=== PATIENT | female | born 1990 | race Caucasian/White ===

== ENCOUNTER 2017-06-15 22:35 | Inpatient (IN) | payer OTHER ==
[2017-06-15 23:26] LABS: HEMATOCRIT 36.4 % (36.0-47.0); HEMOGLOBIN 12.7 g/dl (12.0-16.0); MEAN CORPUSCULAR HEMOGLOBIN 32.5 pg (27.0-33.0); MEAN CORPUSCULAR HGB CONC 34.9 g/dl (32.0-36.5); MEAN CORPUSCULAR VOLUME 93.1 fl (80.0-96.0); PLATELET COUNT, AUTOMATED 243 10^3/uL (150-450); RED BLOOD COUNT 3.91 10^6/uL (4.00-5.40); RED CELL DISTRIBUTION WIDTH 11.9 % (11.5-14.5); WHITE BLOOD COUNT 8.6 10^3/uL (4.0-10.0)
[2017-06-15 23:45] LABS: CONTROL LINE HCG INT CTR LINE PRESENT; HCG, SERUM QUALITATIVE NEGATIVE (NEGATIVE)
[2017-06-15 23:51] LABS: AMPHETAMINES LEVEL URINE NEGATIVE (NEGATIVE); BARBITURATES URINE NEGATIVE (NEGATIVE); BENZODIAZEPINES URINE NEGATIVE (NEGATIVE); CANNABINOIDS URINE NEGATIVE (NEGATIVE); COCAINE METABOLITE URINE NEGATIVE (NEGATIVE); METHADONE URINE NEGATIVE (NEGATIVE); OPIATES URINE NEGATIVE (NEGATIVE); PHENCYCLIDINE URINE NEGATIVE (NEGATIVE)
[2017-06-16] LABS: ALBUMIN 3.5 GM/DL (3.2-5.2); ALKALINE PHOSPHATASE 73 U/L (45-117); ALT/SGPT 36 U/L (12-78); ANION GAP 7 MEQ/L (8-16); AST/SGOT 19 U/L (7-37); BILIRUBIN,DIRECT < 0.1 MG/DL (0.0-0.2); BILIRUBIN,TOTAL 0.2 MG/DL (0.2-1.0); BLOOD UREA NITROGEN 10 MG/DL (7-18); CALCIUM LEVEL 8.4 MG/DL (8.5-10.1); CARBON DIOXIDE LEVEL 29 MEQ/L (21-32); CHLORIDE LEVEL 107 MEQ/L (98-107); CREATININE FOR GFR 0.73 MG/DL (0.55-1.30); ETHYL ALCOHOL (ETHANOL) 0.059 % (0.000-0.010); GLOMERULAR FILTRATION RATE > 60.0 (>60); GLUCOSE, FASTING 92 MG/DL (70-100); POTASSIUM SERUM 3.7 MEQ/L (3.5-5.1); SALICYLATE LEVEL 2.5 MG/DL (5.0-30.0); SODIUM LEVEL 143 MEQ/L (136-145)
[2017-06-16 00:02] LABS: ACETAMINOPHEN LEVEL < 2.0 UG/ML (10.0-30.0)
[2017-06-16] MEDS: ONDANSETRON 4 MG ORAL DISINTEGRATING TAB (S0181) PO (00:31)
[2017-06-16] MEDS ORDERED: MOM 30ML SUSPENSION UDC PO (02:15)
[2017-06-16] MEDS ORDERED: MAALOX 30 ML SUSP *UDC PO (02:15)
[2017-06-16] MEDS ORDERED: traZODone 50 MG TAB PO (02:15)
[2017-06-16] MEDS: CitaloPRAM (CeleXA) 20 MG TAB PO (11:59)
[2017-06-16] MEDS: PALIPERIDONE 3 MG ER TAB (INVEGA) PO (12:00)
[2017-06-16] MEDS: hydrOXYzine 50 MG TAB PO ×3 (12:00→18:31)
[2017-06-16 12:30] LABS: HEPATITIS B SURFACE ANTIGEN NEGATIVE (NEGATIVE)
[2017-06-16 12:57] LABS: HEPATITIS B CORE ANTIBODY IGM NEGATIVE (NEGATIVE)
[2017-06-16 12:58] LABS: HIV 1&2 SCREEN CENTAUR NEGATIVE (NEGATIVE)
[2017-06-16 12:59] LABS: HEPATITIS A ANTIBODY IGM NEGATIVE (NEGATIVE)
[2017-06-16 13:04] LABS: HEPATITIS C VIRUS ABY INDEX > 11.0 INDEX (<0.8)
[2017-06-16] MEDS: ACETAMINOPHEN TAB 650MG DOSE (2X325MG) PO (18:32)
[2017-06-16] MEDS: traZODone 50 MG TAB PO (21:15)
[2017-06-17] MEDS: CitaloPRAM (CeleXA) 20 MG TAB PO (08:17)
[2017-06-17] MEDS: PALIPERIDONE 3 MG ER TAB (INVEGA) PO (08:17)
[2017-06-17] MEDS: NALTREXONE 50 MG TAB PO (08:17)
[2017-06-17] MEDS: INFLUENZA QUADRIVALENT PF VACCINE 0.5ML SYRINGE (90686) IM (08:19)
[2017-06-17 12:18] LABS: CHLAMYDIA DNA AMPLIFICATION NEGATIVE (NEGATIVE); GC DNA AMPLIFICATION NEGATIVE (NEGATIVE)
[2017-06-17] MEDS: ACETAMINOPHEN TAB 650MG DOSE (2X325MG) PO ×2 (12:22→20:55)
[2017-06-17] MEDS: hydrOXYzine 50 MG TAB PO ×2 (17:13→21:20)
[2017-06-17] MEDS: traZODone 50 MG TAB PO (20:56)
[2017-06-18] MEDS: NALTREXONE 50 MG TAB PO (08:15)
[2017-06-18] MEDS: PALIPERIDONE 3 MG ER TAB (INVEGA) PO ×2 (08:15→20:39)
[2017-06-18] MEDS: CitaloPRAM (CeleXA) 20 MG TAB PO (08:15)
[2017-06-18] MEDS: traZODone 100 MG TAB PO (20:39)
[2017-06-18] MEDS: ACETAMINOPHEN TAB 650MG DOSE (2X325MG) PO (21:12)
[2017-06-18] MEDS: hydrOXYzine 50 MG TAB PO (21:13)
[2017-06-19] MEDS: NALTREXONE 50 MG TAB PO (08:03)
[2017-06-19] MEDS: PALIPERIDONE 6 MG ER TAB (INVEGA) PO (08:03)
[2017-06-19] MEDS: CitaloPRAM (CeleXA) 20 MG TAB PO (08:03)
[2017-06-19] MEDS: hydrOXYzine 50 MG TAB PO (14:29)
[2017-06-19] MEDS: BUPRENORPHINE/NALOXONE 8-2MG SUBLINGUAL TABLET(SUBOXONE) SL (19:21)
[2017-06-19] MEDS: BUPRENORPHINE/NALOXONE 2-0.5MG SUBLINGUAL TABLET(SUBOXONE) SL (19:22)
[2017-06-19] MEDS: PALIPERIDONE 3 MG ER TAB (INVEGA) PO (20:43)
[2017-06-19] MEDS: traZODone 100 MG TAB PO (20:44)
[2017-06-20 00:06] LABS: HCV RNA NAA QUALITATIVE Negative (Negative)
[2017-06-20] MEDS: CitaloPRAM (CeleXA) 20 MG TAB PO (08:15)
[2017-06-20] MEDS: BUPRENORPHINE/NALOXONE 8-2MG SUBLINGUAL TABLET(SUBOXONE) SL (08:15)
[2017-06-20] MEDS: PALIPERIDONE 6 MG ER TAB (INVEGA) PO (08:15)
[2017-06-20] MEDS: BUPRENORPHINE/NALOXONE 2-0.5MG SUBLINGUAL TABLET(SUBOXONE) SL (08:15)
[2017-06-20] MEDS ORDERED: BUPRENORPHINE/NALOXONE 8-2MG SUBLINGUAL TABLET(SUBOXONE) SL (09:00)
[2017-06-20] MEDS ORDERED: BUPRENORPHINE/NALOXONE 2-0.5MG SUBLINGUAL TABLET(SUBOXONE) SL (09:00)
== END 2017-06-20 09:30 | disposition home or self-care (01) | DRG 750 ==
LOC: M ED 22:35 → M ED INP 06-16 02:07 → M PSY 06-16 03:53
PROVIDERS: Psychiatry & Neurology Psychiatry
DX: F25.9 Schizoaffective disorder, unspecified (principal); F43.10 Post-traumatic stress disorder, unspecified; F17.210 Nicotine dependence, cigarettes, uncomplicated; F10.239 Alcohol dependence with withdrawal, unspecified; F14.20 Cocaine dependence, uncomplicated; F11.20 Opioid dependence, uncomplicated; F15.20 Other stimulant dependence, uncomplicated; Z62.810 Personal history of physical and sexual abuse in childhood; Z91.5 Personal history of self-harm; Z81.8 Family history of other mental and behavioral disorders; Z79.899 Other long term (current) drug therapy

== ENCOUNTER 2023-11-27 17:37 | Inpatient (IN) | payer OTHER ==
[~2023-11-27] VITALS: Ht 160 cm; Wt 110.0 kg
[~2023-11-27 17:37] MED LIST: CITA20TA6 PO; CLON-412 PO; FOLI1TAB11 PO; FOLI5INJ2 PO; GABA-282 PO; GABA-284 PO; HYDR-643 PO; LITH300T PO; PALI1TAB2 PO; PALI1TAB3 PO; RISP-106 PO; TRAZ-252 PO; TRAZ1TAB12 PO; VITA100T60 PO
[2023-11-27] MEDS: DERMABOND TOPICAL SKIN ADHESIVE TOP ONE (17:50)
[2023-11-27 18:23] LABS: HEMATOCRIT 39.2 % (36.0-47.0); HEMOGLOBIN 13.2 g/dl (12.0-15.5); MEAN CORPUSCULAR HGB CONC 33.7 g/dl (32.0-36.5); MEAN CORPUSCULAR VOLUME 95.1 fl (80.0-96.0); PLATELET COUNT, AUTOMATED 306 10^3/uL (150-450); RED BLOOD COUNT 4.12 10^6/uL (4.00-5.40); WHITE BLOOD COUNT 9.8 10^3/uL (4.0-10.0)
[2023-11-27 18:47] LABS: HCG, SERUM QUALITATIVE NEGATIVE (NEGATIVE)
[2023-11-27 18:48] LABS: ETHYL ALCOHOL (ETHANOL) < 0.003 % (0.000-0.010)
[2023-11-27 18:50] LABS: ALBUMIN 3.4 G/DL (3.2-5.2); ALKALINE PHOSPHATASE 69 U/L (46-116); ALT/SGPT 27 U/L (7.0-40); AST/SGOT 22 U/L (<34); BILIRUBIN,DIRECT < 0.1 MG/DL (<0.4); BILIRUBIN,TOTAL 0.2 MG/DL (0.3-1.2); BLOOD UREA NITROGEN 8 MG/DL (9-23); CALCIUM LEVEL 8.5 MG/DL (8.5-10.1); CARBON DIOXIDE LEVEL 28 MMOL/L (20-31); CHLORIDE LEVEL 106 MMOL/L (98-107); CREATININE FOR GFR 0.64 MG/DL (0.55-1.30); GLOMERULAR FILTRATION RATE > 60.0 (>60); GLUCOSE, FASTING 87 MG/DL (60-100); POTASSIUM SERUM 4.5 MMOL/L (3.5-5.1); SALICYLATE LEVEL < 3.0 MG/DL (<30); SODIUM LEVEL 139 MMOL/L (136-145); TOTAL PROTEIN 6.7 G/DL (5.7-8.2)
[2023-11-27] MEDS ORDERED: BENZ0.5T2 PO (21:28)
[2023-11-27] MEDS ORDERED: SERO1TAB PO (21:28)
[2023-11-27] MEDS ORDERED: HALO5TAB33 PO ×2 (21:28→22:05)
[2023-11-27] MEDS ORDERED: EFFE75CA2 PO (21:28)
[2023-11-27] MEDS ORDERED: GABA-282 PO (21:28)
[2023-11-27 21:35] LABS: AMPHETAMINES LEVEL URINE NEGATIVE (NEGATIVE); BARBITURATES URINE NEGATIVE (NEGATIVE); BENZODIAZEPINES URINE NEGATIVE (NEGATIVE); COCAINE METABOLITE URINE NEGATIVE (NEGATIVE); METHADONE URINE NEGATIVE (NEGATIVE); OPIATES URINE NEGATIVE (NEGATIVE); PHENCYCLIDINE URINE NEGATIVE (NEGATIVE)
[2023-11-27 21:39] LABS: CANNABINOIDS URINE POSITIVE (NEGATIVE)
[2023-11-27] MEDS ORDERED: CLON-412 PO (22:05)
[2023-11-27] MEDS ORDERED: METH20TA29 PO (22:05)
[2023-11-27] MEDS ORDERED: VENL75CA47 PO (22:05)
[2023-11-27] MEDS ORDERED: ARIP960S IM (22:05)
[2023-11-27] MEDS ORDERED: DIVA500T94 PO (22:05)
[2023-11-27] MEDS ORDERED: BUPR8SUB SL (22:05)
[2023-11-27] MEDS ORDERED: BENZ1TAB5 PO (22:05)
[2023-11-28] MEDS: BENZTROPINE 1 MG TAB PO SCH (00:40)
[2023-11-28] MEDS: DIVALPROEX 500 MG TAB PO SCH (00:43)
[2023-11-28] MEDS: GABAPENTIN 300 MG CAP PO SCH (00:44)
[2023-11-28] MEDS ORDERED: HOME MED LIST COMPLETE! XX SCH (07:55)
[2023-11-28] MEDS: VENLAFAXINE **XR** 75MG CAPSULE PO SCH (10:28)
[2023-11-28] MEDS: BUPRENORPHINE HCL 8MG SUBINGUAL TABLET SL SCH (10:29)
[2023-11-28] MEDS ORDERED: IBUPROFEN 400MG TAB PO PRN (19:50)
[2023-11-28] MEDS ORDERED: MAALOX 30 ML SUSP *UDC PO PRN (19:50)
[2023-11-28] MEDS ORDERED: MOM 30ML SUSPENSION UDC PO PRN (19:50)
[2023-11-28 20:42] VITALS: BP 120/64; TEMP 97.2; O2SAT 100
[2023-11-28] MEDS: traZODone 50 MG TAB PO PRN (21:12)
[2023-11-29 06:15] VITALS: BP 138/78; TEMP 97.9; O2SAT 96
[2023-11-29] MEDS: NICOTINE 21MG/24HR 1 EA TRANSDERMAL TD SCH (08:44)
[2023-11-29] MEDS ORDERED: cloNIDine 0.1MG TABLET PO PRN (10:25)
[2023-11-29] MEDS: BUPRENORPHINE HCL 8MG SUBINGUAL TABLET SL SCH (11:37)
[2023-11-29] MEDS: BENZTROPINE 1 MG TAB PO SCH (11:37)
[2023-11-29] MEDS: GABAPENTIN 300 MG CAP PO SCH (11:37)
[2023-11-29] MEDS: DIVALPROEX 500 MG TAB PO SCH (11:37)
[2023-11-29] MEDS: VENLAFAXINE **XR** 75MG CAPSULE PO SCH (11:38)
[2023-11-29] MEDS: BACITRACIN OINTMENT 30GM TUBE TOP SCH (15:11)
[2023-11-29] MEDS: diphenhydrAMINE 25MG CAP PO PRN (16:34)
[2023-11-29 17:31] VITALS: BP 138/72; TEMP 96.9; O2SAT 97
[2023-11-30] MEDS ORDERED: UNRESOLVED CLARIFICATION ENTRY XX SCH (00:01)
[2023-11-30 07:38] LABS: CHOLESTEROL RISK RATIO 8.22 (<5); HDL CHOLESTEROL 32.7 MG/DL (>40); LDL CHOLESTEROL 187.5 MG/DL (<100); NON-HDL-C 236.3 MG/DL
[2023-11-30] MEDS: DIVALPROEX 500 MG TAB PO SCH (09:11)
[2023-11-30] MEDS: OLANZapine ORAL DISINTEGRATING TAB 5MG PO PRN (09:57)
[2023-11-30 18:35] VITALS: BP 136/65; TEMP 98.4; O2SAT 100
[2023-11-30] MEDS: QUEtiapine FUMARATE 100 MG TAB PO SCH (20:19)
[2023-12-01 06:17] VITALS: BP 140/87; TEMP 97.5
[2023-12-01] MEDS: NYSTATIN 100,000 UNITS/GM TOPICAL PWD 15GM TOP SCH (15:37)
[2023-12-01 16:33] VITALS: BP 138/82; TEMP 97.2; O2SAT 98
[2023-12-02 06:29] VITALS: BP 131/68; TEMP 98; O2SAT 98
[2023-12-02 17:32] VITALS: BP 140/63; TEMP 96.8; O2SAT 95
[2023-12-02] MEDS: QUEtiapine FUMARATE 200 MG TAB PO SCH (20:11)
[2023-12-03 06:26] VITALS: BP 139/71; TEMP 97.2; O2SAT 98
[2023-12-03] MEDS: TRIAMCINOLONE ACETONIDE 0.025% 80GM CREAM TOP SCH (09:00)
[2023-12-03] MEDS: ACETAMINOPHEN TAB 650MG DOSE (2X325MG) PO PRN (11:32)
[2023-12-03 11:58] LABS: BASO # 0.1 10^3/uL (0.0-0.2); BASO % 0.6 % (0.0-1.0); EOS # 0.4 10^3/uL (0.0-0.5); EOS % 5.5 % (0.0-3.0); HEMATOCRIT 38.7 % (36.0-47.0); HEMOGLOBIN 13.4 g/dl (12.0-15.5); LYMPH # 3.7 10^3/uL (1.5-5.0); MEAN CORPUSCULAR HEMOGLOBIN 32.6 pg (27.0-33.0); MEAN CORPUSCULAR HGB CONC 34.6 g/dl (32.0-36.5); MEAN CORPUSCULAR VOLUME 94.2 fl (80.0-96.0); MONO # 0.6 10^3/uL (0.0-0.8); MONO % 6.8 % (2.0-8.0); NEUTROPHILS # 3.3 10^3/uL (1.5-8.5); NEUTROPHILS % 40.7 % (36.0-66.0); PLATELET COUNT, AUTOMATED 272 10^3/uL (150-450); RED BLOOD COUNT 4.11 10^6/uL (4.00-5.40); WHITE BLOOD COUNT 8.1 10^3/uL (4.0-10.0)
[2023-12-03 12:02] LABS: ERYTHROCYTE SEDIMENTATION RATE 9 mm/hr (0-20)
[2023-12-03 12:21] LABS: ALBUMIN 3.4 G/DL (3.2-5.2); ALKALINE PHOSPHATASE 77 U/L (46-116); ALT/SGPT 34 U/L (7.0-40); AST/SGOT 24 U/L (<34); BILIRUBIN,TOTAL 0.2 MG/DL (0.3-1.2); BLOOD UREA NITROGEN 12 MG/DL (9-23); CALCIUM LEVEL 9.1 MG/DL (8.5-10.1); CARBON DIOXIDE LEVEL 31 MMOL/L (20-31); CHLORIDE LEVEL 101 MMOL/L (98-107); CREATININE FOR GFR 0.73 MG/DL (0.55-1.30); GLOMERULAR FILTRATION RATE > 60.0 (>60); GLUCOSE, FASTING 98 MG/DL (60-100); POTASSIUM SERUM 4.3 MMOL/L (3.5-5.1); SODIUM LEVEL 137 MMOL/L (136-145); TOTAL PROTEIN 6.8 G/DL (5.7-8.2)
[2023-12-03 12:33] LABS: PROCALCITONIN <0.04 ng/ml
[2023-12-03] MEDS: diphenhydrAMINE CREAM 30GM TOP SCH (16:58)
[2023-12-03 17:00] VITALS: BP 140/82; TEMP 96.9; O2SAT 100
[2023-12-04 06:19] VITALS: BP 118/69; TEMP 97.6; O2SAT 98
[2023-12-04] MEDS ORDERED: NYST10006 TOP (11:20)
[2023-12-04] MEDS ORDERED: QUET200T2 PO (11:20)
[2023-12-04] MEDS ORDERED: DEPA1TAB3 PO (11:20)
[2023-12-04] MEDS ORDERED: TRIA25CR TOP (13:44)
[2023-12-05 15:02] LABS: ANA SCREEN, IFA NEGATIVE (NEGATIVE)
== END 2023-12-04 13:43 | disposition home or self-care (01) | DRG 750 ==
LOC: EDBD 17:37 → M ED 17:37 → M ED INP 11-28 19:48 → M PSY 11-28 20:33
PROVIDERS: ADMIT Student in an Organized Health Care Education/Training Program; ATTEND Psychiatry & Neurology Child & Adolescent Psychiatry
DX: F25.9 Schizoaffective disorder, unspecified (principal); R45.851 Suicidal ideations; F43.10 Post-traumatic stress disorder, unspecified; F15.10 Other stimulant abuse, uncomplicated; Z91.52 Personal history of nonsuicidal self-harm; Z81.8 Family history of other mental and behavioral disorders; Z63.79 Other stressful life events affecting family and household; Z62.810 Personal history of physical and sexual abuse in childhood; Z81.3 Family history of other psychoactive substance abuse and dependence; F17.210 Nicotine dependence, cigarettes, uncomplicated; Z79.899 Other long term (current) drug therapy; G47.00 Insomnia, unspecified; R21 Rash and other nonspecific skin eruption; Z91.51 Personal history of suicidal behavior